=== PATIENT | male | born 1960 | race Caucasian/White ===

== ENCOUNTER → 2023-09-08 06:50 | Outpatient (REF) | payer OTHER, SELFPAY | LOC: HWRCS 06:50 | PROVIDERS: ATTENDING PHYSICIAN Internal Medicine; FAMILY PHYSICIAN Family Medicine | DX: I25.810 Atherosclerosis of coronary artery bypass graft(s) without angina pectoris (principal) | CPT/HCPCS: 93306 ==

== ENCOUNTER → 2023-09-16 07:01 | Outpatient (REF) | payer OTHER, SELFPAY | LOC: DHCBC/DCA 07:01 | PROVIDERS: ATTENDING PHYSICIAN Internal Medicine; FAMILY PHYSICIAN Family Medicine | DX: I25.810 Atherosclerosis of coronary artery bypass graft(s) without angina pectoris (principal) | CPT/HCPCS: 78452; 93017; A9500; J2785 ==